=== PATIENT | male | born 1960 | race Caucasian/White ===

== ENCOUNTER 2016-09-11 18:05 | Inpatient (IN) | payer MEDICARE, OTHER ==
[2016-09-11] VITALS (147 sets, daily range): BP systolic 103–104; BP diastolic 53; PULSE 109–118; TEMP 98–98.4; O2SAT 66–100
[~2016-09-11] VITALS: Ht 177.8 cm; Wt 126.4 kg
[2016-09-11] MEDS ORDERED: GLUCOPHAGE1000 MG PO (18:26)
[2016-09-11 18:29] LABS: BASO % 0.2 % (0.0-2.0); EOS # 0.7 (0.0-0.7); GRAN # 12.9 (1.4-6.5); LYMPH # 1.3 (1.2-3.4); MEAN CELL VOLUME 77 fl (80.0-100.0); MEAN CORPUSCULAR HGB CONC 30 g/dl (33.0-37.0); MEAN PLATELET VOLUME 9.5 fl (7.4-10.4); MONO # 1.5 (0.1-0.6); MONO % 8.9 % (1.7-9.3); PLATELET COUNT 480 K/mm3 (130-400); RED BLOOD COUNT 3.62 M/mm3 (4.20-5.60); REDCELL DISTRIBUTION WIDTH-CV 15.9 % (11.5-14.5); WHITE BLOOD COUNT 16.6 K/mm3 (4.8-10.8)
[2016-09-11] MEDS ORDERED: COUMADIN 2MG2 MG/TAB PO (18:32)
[2016-09-11] MEDS ORDERED: AMARYL4 MG PO (18:33)
[2016-09-11] MEDS ORDERED: MEVACOR 20M20 MG/TAB PO (18:33)
[2016-09-11 18:38] LABS: HEMATOCRIT 27.9 % (42.0-52.0); HEMOGLOBIN 8.4 g/dl (13.5-18.0); MEAN CORPUSCULAR HEMOGLOBIN 23 pg (27.0-31.0)
[2016-09-11 18:41] LABS: ADJUSTED CALCIUM 10.2 mg/dL (8.4-10.2); ALANINE AMINOTRANSFERASE 40 U/L (21-72); ALBUMIN 3.4 gm/dL (3.5-5.0); ALKALINE PHOSPHATASE 157 U/L (50-136); ANION GAP 15 mmol/L (7-16); BILIRUBIN,TOTAL 1.3 mg/dL (0.0-1.0); BLOOD UREA NITROGEN 25 mg/dL (9-20); CALCIUM 9.7 mg/dL (8.4-10.2); CARBON DIOXIDE 25 mmol/L (22-30); CHLORIDE 92 mmol/L (98-107); CREATININE, serum 1.17 mg/dL (0.66-1.25); GLUCOSE 259 mg/dL (74-106); POTASSIUM 4.8 mmol/L (3.4-5.0); SODIUM 132 mmol/L (137-145); TOTAL PROTEIN 7.3 gm/dL (6.4-8.2)
[2016-09-11 18:43] LABS: PROTHROMBIN TIME 49.4 SECONDS (9.7-12.8)
[2016-09-11 18:44] LABS: INR 4.3 (0.8-3.0)
[2016-09-11 19:22] LABS: B-TYPE NATRIURETIC PEPTIDE 103 pg/mL (0-125)
[2016-09-11 19:27] LABS: TROPONIN-I < 0.012 ng/mL (0.000-0.034)
[2016-09-11 19:40] LABS: THYROID STIMULATING HORMONE 0.825 uIU/mL (0.465-4.680)
[2016-09-11 20:15] LABS: C-REACTIVE PROTEIN 18.5 mg/dL (0.0-0.9)
[2016-09-11 20:35] LABS: PH 5 (5-8); SQUAMOUS EPITHELIAL 0-2 /hpf; URINE APPEARANCE Hazy; URINE BACTERIA Rare /hpf; URINE BILIRUBIN Negative (NEGATIVE); URINE BLOOD 1+ (NEGATIVE); URINE COLOR Amber; URINE GLUCOSE Negative (NEGATIVE); URINE KETONE Negative (NEGATIVE)
[2016-09-11] MEDS ORDERED: ZESTRIL 5MG5 MG PO (21:31)
[2016-09-12] VITALS (308 sets, daily range): BP systolic 99–121; BP diastolic 46–59; PULSE 87–113; TEMP 97.1–98.4; O2SAT 93–100
[2016-09-12 05:33] LABS: MEAN CELL VOLUME 74 fl (80.0-100.0); MEAN CORPUSCULAR HGB CONC 31 g/dl (33.0-37.0); MEAN PLATELET VOLUME 9.5 fl (7.4-10.4); RED BLOOD COUNT 2.81 M/mm3 (4.20-5.60); REDCELL DISTRIBUTION WIDTH-CV 15.9 % (11.5-14.5); WHITE BLOOD COUNT 11.4 K/mm3 (4.8-10.8)
[2016-09-12 06:06] LABS: CALCIUM 8.3 mg/dL (8.4-10.2); CREATININE, serum 0.91 mg/dL (0.66-1.25); POTASSIUM 4.3 mmol/L (3.4-5.0)
[2016-09-12 06:07] LABS: HEMATOCRIT 20.9 % (42.0-52.0); HEMOGLOBIN 6.5 g/dl (13.5-18.0); MEAN CORPUSCULAR HEMOGLOBIN 23 pg (27.0-31.0); PLATELET COUNT 315 K/mm3 (130-400)
[2016-09-12 06:11] LABS: INR 4.8 (0.8-3.0); PROTHROMBIN TIME 55.6 SECONDS (9.7-12.8)
[2016-09-12 14:32] LABS: TOTAL IRON BINDING CAPACITY 191 ug/dL (261-462)
[2016-09-12 15:58] LABS: FERRITIN 1630 ng/mL (18-464)
[2016-09-12 19:02] LABS: HEMATOCRIT 24.5 % (42.0-52.0); HEMOGLOBIN 7.5 g/dl (13.5-18.0)
[2016-09-13] VITALS (12 sets, daily range): BP systolic 102–139; BP diastolic 48–69; PULSE 92–113; TEMP 97.6–98.7
[2016-09-13 13:27] LABS: BASO % 0.3 % (0.0-2.0); EOS # 0.6 (0.0-0.7); EOS % 5.1 % (0-4.0); GRAN # 8.1 (1.4-6.5); GRAN % 75.4 % (42.2-75.2); LYMPH # 1.1 (1.2-3.4); LYMPH % 9.9 % (20.0-51.0); MEAN CORPUSCULAR HGB CONC 31 g/dl (33.0-37.0); MEAN PLATELET VOLUME 9.4 fl (7.4-10.4); MONO # 0.9 (0.1-0.6); MONO % 8.6 % (1.7-9.3); PLATELET COUNT 279 K/mm3 (130-400); RED BLOOD COUNT 3.16 M/mm3 (4.20-5.60); REDCELL DISTRIBUTION WIDTH-CV 16.5 % (11.5-14.5); WHITE BLOOD COUNT 10.7 K/mm3 (4.8-10.8)
[2016-09-13 13:31] LABS: HEMATOCRIT 24.8 % (42.0-52.0); HEMOGLOBIN 7.7 g/dl (13.5-18.0); MEAN CELL VOLUME 79 fl (80.0-100.0); MEAN CORPUSCULAR HEMOGLOBIN 24 pg (27.0-31.0)
[2016-09-14] VITALS (7 sets, daily range): BP systolic 114–130; BP diastolic 45–55; PULSE 96–119; TEMP 97.8–99
[2016-09-14 09:27] LABS: BASO % 0.3 % (0.0-2.0); EOS # 0.5 (0.0-0.7); EOS % 4.2 % (0-4.0); GRAN # 8.8 (1.4-6.5); GRAN % 77.2 % (42.2-75.2); LYMPH # 0.9 (1.2-3.4); LYMPH % 7.9 % (20.0-51.0); MEAN CELL VOLUME 78 fl (80.0-100.0); MEAN CORPUSCULAR HGB CONC 32 g/dl (33.0-37.0); MEAN PLATELET VOLUME 9.2 fl (7.4-10.4); MONO # 1.1 (0.1-0.6); MONO % 9.3 % (1.7-9.3); PLATELET COUNT 262 K/mm3 (130-400); RED BLOOD COUNT 3.17 M/mm3 (4.20-5.60); REDCELL DISTRIBUTION WIDTH-CV 16.9 % (11.5-14.5); WHITE BLOOD COUNT 11.4 K/mm3 (4.8-10.8)
[2016-09-14 09:33] LABS: HEMATOCRIT 24.8 % (42.0-52.0); HEMOGLOBIN 7.8 g/dl (13.5-18.0); MEAN CORPUSCULAR HEMOGLOBIN 25 pg (27.0-31.0)
[2016-09-14 09:35] LABS: INR 1.7 (0.8-3.0); PROTHROMBIN TIME 18.7 SECONDS (9.7-12.8)
[2016-09-14 09:41] LABS: ADJUSTED CALCIUM 9.6 mg/dL (8.4-10.2); ALBUMIN 2.5 gm/dL (3.5-5.0); BILIRUBIN,TOTAL 1.2 mg/dL (0.0-1.0); CALCIUM 8.4 mg/dL (8.4-10.2); CREATININE, serum 0.7 mg/dL (0.66-1.25); POTASSIUM 4.3 mmol/L (3.4-5.0); TOTAL PROTEIN 5.8 gm/dL (6.4-8.2)
[2016-09-15] VITALS (15 sets, daily range): BP systolic 119–173; BP diastolic 39–79; PULSE 93–108; TEMP 97.9–99.2
[2016-09-15 06:56] LABS: INR 1.6 (0.8-3.0); PROTHROMBIN TIME 18.4 SECONDS (9.7-12.8)
[2016-09-16 03:42] VITALS: BP 136/58; PULSE 98; TEMP 98.2
[2016-09-16 08:34] VITALS: BP 136/50; PULSE 93; TEMP 98.3
[2016-09-16 11:43] LABS: INR 1.6 (0.8-3.0); PROTHROMBIN TIME 18.2 SECONDS (9.7-12.8)
[2016-09-16 12:51] VITALS: BP 128/46; PULSE 100; TEMP 97.5
[2016-09-16 16:36] VITALS: BP 106/59; PULSE 112; TEMP 97
[2016-09-16 19:37] VITALS: BP 134/45; PULSE 95; TEMP 98.3
[2016-09-16 23:51] VITALS: BP 1126/44; BP 126/44; PULSE 107; TEMP 100.1
[2016-09-17] VITALS (13 sets, daily range): BP systolic 92–149; BP diastolic 40–68; PULSE 97–118; TEMP 98.1–99.1
[2016-09-18] VITALS (13 sets, daily range): BP systolic 96–130; BP diastolic 39–66; PULSE 89–116; TEMP 98.1–100.4
[2016-09-18 08:22] LABS: BASO % 0.2 % (0.0-2.0); EOS # 0.6 (0.0-0.7); EOS % 5.5 % (0-4.0); GRAN # 8.1 (1.4-6.5); GRAN % 75.2 % (42.2-75.2); MEAN CELL VOLUME 78 fl (80.0-100.0); MEAN CORPUSCULAR HGB CONC 31 g/dl (33.0-37.0); MEAN PLATELET VOLUME 9.4 fl (7.4-10.4); MONO % 9.1 % (1.7-9.3); PLATELET COUNT 232 K/mm3 (130-400); RED BLOOD COUNT 3.07 M/mm3 (4.20-5.60); REDCELL DISTRIBUTION WIDTH-CV 17.6 % (11.5-14.5); WHITE BLOOD COUNT 10.8 K/mm3 (4.8-10.8)
[2016-09-18 08:32] LABS: HEMATOCRIT 23.9 % (42.0-52.0); HEMOGLOBIN 7.3 g/dl (13.5-18.0); MEAN CORPUSCULAR HEMOGLOBIN 24 pg (27.0-31.0)
[2016-09-19] VITALS (7 sets, daily range): BP systolic 111–168; BP diastolic 42–64; PULSE 91–130; TEMP 97.6–99.4
[2016-09-20 04:05] VITALS: BP 110/63; PULSE 108; TEMP 98.2
[2016-09-20 07:52] VITALS: BP 136/45; PULSE 106; TEMP 98.3
[2016-09-20 08:21] LABS: BASO % 0.2 % (0.0-2.0); EOS # 0.6 (0.0-0.7); EOS % 4.6 % (0-4.0); GRAN # 9.6 (1.4-6.5); GRAN % 77.4 % (42.2-75.2); LYMPH % 7.8 % (20.0-51.0); MEAN CELL VOLUME 80 fl (80.0-100.0); MEAN CORPUSCULAR HGB CONC 31 g/dl (33.0-37.0); MEAN PLATELET VOLUME 9.1 fl (7.4-10.4); MONO # 1.1 (0.1-0.6); MONO % 8.7 % (1.7-9.3); PLATELET COUNT 248 K/mm3 (130-400); REDCELL DISTRIBUTION WIDTH-CV 18.3 % (11.5-14.5); WHITE BLOOD COUNT 12.4 K/mm3 (4.8-10.8)
[2016-09-20 08:25] LABS: HEMOGLOBIN 8.6 g/dl (13.5-18.0); MEAN CORPUSCULAR HEMOGLOBIN 25 pg (27.0-31.0)
[2016-09-20 08:26] LABS: INR 1.7 (0.8-3.0); PROTHROMBIN TIME 19.5 SECONDS (9.7-12.8)
[2016-09-20 08:36] LABS: ALBUMIN 2.4 gm/dL (3.5-5.0); BILIRUBIN,TOTAL 1.1 mg/dL (0.0-1.0); CALCIUM 7.7 mg/dL (8.4-10.2); CREATININE, serum 0.7 mg/dL (0.66-1.25); POTASSIUM 4.2 mmol/L (3.4-5.0); TOTAL PROTEIN 5.7 gm/dL (6.4-8.2)
[2016-09-20 12:18] VITALS: BP 107/43; PULSE 107; TEMP 98.2
[2016-09-20 15:59] VITALS: BP 133/57; PULSE 113; TEMP 97.7
[2016-09-20 18:04] LABS: HAPTOGLOBIN 499 mg/dL (36-195)
[2016-09-20 20:09] VITALS: BP 145/73; PULSE 127; TEMP 98.1
[2016-09-21 00:17] VITALS: BP 114/36; PULSE 122; TEMP 98.6
[2016-09-21 04:15] VITALS: BP 120/50; PULSE 118; TEMP 98.7
[2016-09-21 07:50] VITALS: BP 143/62; PULSE 108; TEMP 98.4
[2016-09-21 09:30] LABS: MEAN CELL VOLUME 79 fl (80.0-100.0); MEAN CORPUSCULAR HGB CONC 30 g/dl (33.0-37.0); MEAN PLATELET VOLUME 9.4 fl (7.4-10.4); PLATELET COUNT 243 K/mm3 (130-400); RED BLOOD COUNT 3.63 M/mm3 (4.20-5.60); REDCELL DISTRIBUTION WIDTH-CV 18.5 % (11.5-14.5); WHITE BLOOD COUNT 12.6 K/mm3 (4.8-10.8)
[2016-09-21 09:31] LABS: HEMATOCRIT 28.7 % (42.0-52.0); HEMOGLOBIN 8.7 g/dl (13.5-18.0); MEAN CORPUSCULAR HEMOGLOBIN 24 pg (27.0-31.0)
[2016-09-21 09:48] LABS: INR 1.7 (0.8-3.0); PROTHROMBIN TIME 19.4 SECONDS (9.7-12.8)
[2016-09-21 12:05] VITALS: BP 114/50; PULSE 114; TEMP 98
[2016-09-21 16:33] VITALS: BP 135/41; PULSE 90; TEMP 96.1
[2016-09-21 20:15] VITALS: BP 118/51; PULSE 60; TEMP 97
[2016-09-22] VITALS (7 sets, daily range): BP systolic 104–141; BP diastolic 42–51; PULSE 101–130; TEMP 97.6–101
[2016-09-22] MEDS ORDERED: FERROUS SU325 MG/TAB PO (08:35)
[2016-09-22] MEDS ORDERED: MS CONTIN 330 MG/TAB PO (08:37)
[2016-09-22] MEDS ORDERED: MIRALAX510G PO (08:37)
[2016-09-22] MEDS ORDERED: NORCO 325 MG-51 TAB PO (08:37)
[2016-09-22 10:23] LABS: MEAN CELL VOLUME 77 fl (80.0-100.0); MEAN CORPUSCULAR HGB CONC 32 g/dl (33.0-37.0); MEAN PLATELET VOLUME 9.3 fl (7.4-10.4); PLATELET COUNT 259 K/mm3 (130-400); RED BLOOD COUNT 3.67 M/mm3 (4.20-5.60); REDCELL DISTRIBUTION WIDTH-CV 18.1 % (11.5-14.5)
[2016-09-22 10:25] LABS: HEMATOCRIT 28.2 % (42.0-52.0); HEMOGLOBIN 8.9 g/dl (13.5-18.0); MEAN CORPUSCULAR HEMOGLOBIN 24 pg (27.0-31.0)
[2016-09-22 10:26] LABS: INR 2.2 (0.8-3.0); PROTHROMBIN TIME 25.1 SECONDS (9.7-12.8)
[2016-09-22 10:49] LABS: PH 5 (5-8); SQUAMOUS EPITHELIAL None Seen /hpf; URINE APPEARANCE Clear; URINE BACTERIA Rare /hpf; URINE BILIRUBIN Negative (NEGATIVE); URINE BLOOD 1+ (NEGATIVE); URINE COLOR Yellow; URINE GLUCOSE Negative (NEGATIVE); URINE KETONE Negative (NEGATIVE); URINE UROBILINOGEN Negative (NEGATIVE)
[2016-09-22 10:53] LABS: ADJUSTED CALCIUM 8.3 mg/dL (8.4-10.2); ALBUMIN 2.5 gm/dL (3.5-5.0); CALCIUM 7.1 mg/dL (8.4-10.2); CREATININE, serum 0.72 mg/dL (0.66-1.25); POTASSIUM 3.7 mmol/L (3.4-5.0); TOTAL PROTEIN 5.9 gm/dL (6.4-8.2)
[2016-09-22 13:07] LABS: ALBUMIN FRACTION 1.7 g/dL (2.6-4.5); ALBUMIN PERCENTAGE 37.1 % (48.7-61.8); ALPHA 1 FRACTION 0.7 g/dL (0.3-0.5); ALPHA 1 PERCENTAGE 14.6 % (3.4-8.3); ALPHA 2 PERCENTAGE 20.8 % (8.4-17.5); BETA 1 FRACTION 0.3 g/dL (0.4-0.6); BETA 1 PERCENTAGE 6.2 % (5.4-8.9); BETA 2 FRACTION 0.3 g/dL (0.2-0.5); BETA 2 PERCENTAGE 6.9 % (3.8-7.7); GAMMA FRACTION 0.7 g/dL (0.4-1.7); GAMMA PERCENTAGE 14.4 % (8.1-23.0); SERUM PROTEIN TOTAL 4.7 g/dL (6.1-7.7)
[2016-09-22 15:42] LABS: BASO % 0.1 % (0.0-2.0); EOS % 2.4 % (0-4.0); LYMPH # 0.9 (1.2-3.4); LYMPH % 6.6 % (20.0-51.0); MONO % 9.1 % (1.7-9.3)
[2016-09-22 15:43] LABS: GRAN # 11.3 (1.4-6.5); MONO # 1.3 (0.1-0.6)
[2016-09-22 15:44] LABS: EOS # 0.3 (0.0-0.7)
[2016-09-22 16:03] LABS: EOS % 2.4 % (0-4.0); LYMPH % 6.6 % (20.0-51.0); MONO % 9.1 % (1.7-9.3)
[2016-09-22 16:04] LABS: BASO % 0.1 % (0.0-2.0); EOS # 0.3 (0.0-0.7); GRAN # 11.3 (1.4-6.5); HEMOGLOBIN 8.9 g/dl (13.5-18.0); LYMPH # 0.9 (1.2-3.4); MEAN CORPUSCULAR HEMOGLOBIN 24 pg (27.0-31.0); MONO # 1.3 (0.1-0.6); RED BLOOD COUNT 3.67 M/mm3 (4.20-5.60); WHITE BLOOD COUNT 13.9 K/mm3 (4.8-10.8)
[2016-09-22 16:05] LABS: HEMATOCRIT 29.1 % (42.0-52.0); MEAN CELL VOLUME 79 fl (80.0-100.0); MEAN CORPUSCULAR HGB CONC 31 g/dl (33.0-37.0); PLATELET COUNT 282 K/mm3 (130-400); REDCELL DISTRIBUTION WIDTH-CV 18.2 % (11.5-14.5)
[2016-09-23 04:56] VITALS: BP 108/50; PULSE 118; TEMP 99.2
[2016-09-23 07:47] VITALS: BP 117/45; PULSE 112; TEMP 98.5
[2016-09-23 09:01] LABS: INR 2.5 (0.8-3.0)
[2016-09-23] MEDS ORDERED: FLOMAX 0.40.4 MG/CAP PO (10:07)
[2016-09-23] MEDS ORDERED: MS CONTIN 115 MG/TAB PO (10:07)
[2016-09-23] MEDS ORDERED: LEVAQUIN 750MG750 M1 PO (10:07)
[2016-09-23] MEDS ORDERED: MS CONTIN 330 MG/TAB PO (10:32)
[2016-09-23] MEDS ORDERED: NORCO 325 MG-7.1 TAB PO (10:32)
[2016-09-23 11:46] VITALS: BP 114/38; PULSE 136; TEMP 98.2
[2016-09-23 14:49] LABS: KAPPA FREE LIGHT CHAIN-SERUM 5.32 mg/dL (()); KAPPA LAMBDA RATIO 2.05 (())
[2016-09-24 00:53] LABS: IEPS IGA 235 mg/dL (63-484); IEPS IGG 779 mg/dL (540-1822); IEPS TP 4.7 g/dL (6.1-7.7)
[2016-09-24 12:31] LABS: ALBUMIN FRACTION 1.7 g/dL (2.6-4.5); ALBUMIN PERCENT 37.1 % (48.7-61.8); ALPHA 1 FRACTION 0.9 g/dL (0.3-0.5); ALPHA 1 PERCENT 14.6 % (3.4-8.3); ALPHA 2 PERCENT 20.8 % (8.4-17.5); BETA 1 FRACTION 0.3 g/dL (0.4-0.6); BETA 1 PERCENT 6.2 % (5.4-8.9); BETA 2 FRACTION 0.3 g/dL (0.2-0.5); BETA 2 PERCENT 6.9 % (3.8-7.7); IEPS GAMMA FRACTION 0.7 g/dL (0.4-1.7); IEPS GAMMA PERCENTAGE 14.4 % (8.1-23.0); IEPS IGM 44 mg/dL (22-240)
== END 2016-09-23 13:50 | disposition home health service (06) | DRG 478 ==
LOC: COL.ER 18:05 → ICU 18:46 → MEDICAL 09-12 12:30
PROVIDERS: Emergency Medicine; Internal Medicine; Nurse Practitioner Family
PROC: 0PB03ZX Excision of Sternum, Percutaneous Approach, Diagnostic (ICD-10-PCS; principal; 2016-09-15)
PROC: 0QB03ZX Excision of Lumbar Vertebra, Percutaneous Approach, Diagnostic (ICD-10-PCS; 2016-09-17)
DX: C79.51 Secondary malignant neoplasm of bone (principal); E87.1 Hypo-osmolality and hyponatremia; E87.2 Acidosis; E44.1 Mild protein-calorie malnutrition; C78.01 Secondary malignant neoplasm of right lung; C78.02 Secondary malignant neoplasm of left lung; C80.1 Malignant (primary) neoplasm, unspecified; E11.9 Type 2 diabetes mellitus without complications; I10 Essential (primary) hypertension; E86.0 Dehydration; D50.8 Other iron deficiency anemias; R33.9 Retention of urine, unspecified; Z86.711 Personal history of pulmonary embolism
CPT/HCPCS: 99223-AI; 99232-AI; 99233-AI; 99239; A9585; G0103; J0692; J0696; J1650; J1815; J2250; J3010; J3489; J7030; J7050; P9016; Q9967